=== PATIENT | female | born 1985 | race Caucasian/White ===

== ENCOUNTER → 2016-06-05 | Outpatient (CLI) | payer OTHER ==
[~2016-06-05] MED LIST: PRENTAB85 PO
== END ==
LOC: HPND 13:20
PROVIDERS: ATTEND Family Medicine
DX: Z36 Encounter for antenatal screening of mother (principal); O26.841 Uterine size-date discrepancy, first trimester; Z3A.12 12 weeks gestation of pregnancy
CPT/HCPCS: 76801; 76817

== ENCOUNTER → 2016-07-31 | Outpatient (CLI) | payer OTHER | LOC: HPND 14:15 | PROVIDERS: ATTEND Family Medicine | DX: O99.211 Obesity complicating pregnancy, first trimester (principal); E66.01 Morbid (severe) obesity due to excess calories; Z68.41 Body mass index [BMI] 40.0-44.9, adult | CPT/HCPCS: 76811 ==

== ENCOUNTER → 2016-09-05 | Outpatient (CLI) | payer OTHER ==
[~2016-09-05] MED LIST changes: +MACR100C2 PO
== END ==
LOC: HPND 13:59
PROVIDERS: ATTEND Obstetrics & Gynecology
DX: O99.211 Obesity complicating pregnancy, first trimester (principal); E66.01 Morbid (severe) obesity due to excess calories; Z68.41 Body mass index [BMI] 40.0-44.9, adult
CPT/HCPCS: 76816

== ENCOUNTER → 2016-10-10 | Outpatient (CLI) | payer OTHER ==
[~2016-10-10] MED LIST changes: +AMOX875T PO; +IBUP-232 PO; +ORTH0.35 PO; +RANI150T PO; +ZOFR4TAB PO
== END ==
LOC: HPND 12:36
PROVIDERS: ATTEND Family Medicine
DX: O99.212 Obesity complicating pregnancy, second trimester (principal); E66.01 Morbid (severe) obesity due to excess calories; Z68.41 Body mass index [BMI] 40.0-44.9, adult
CPT/HCPCS: 76816

== ENCOUNTER → 2016-11-07 | Outpatient (CLI) | payer OTHER | LOC: HPND 09:24 | PROVIDERS: ATTEND Family Medicine | DX: O99.213 Obesity complicating pregnancy, third trimester (principal); E66.01 Morbid (severe) obesity due to excess calories; Z68.41 Body mass index [BMI] 40.0-44.9, adult | CPT/HCPCS: 76816 ==

== ENCOUNTER → 2016-11-14 | Outpatient (CLI) | payer OTHER | LOC: HPND 12:46 | PROVIDERS: ATTEND Family Medicine | DX: O41.03X0 Oligohydramnios, third trimester, not applicable or unspecified (principal); Z03.71 Encounter for suspected problem with amniotic cavity and membrane ruled out; Z3A.35 35 weeks gestation of pregnancy | CPT/HCPCS: 76815 ==

== ENCOUNTER 2016-11-21 14:09 | Emergency (ER) | payer OTHER ==
[~2016-11-21] VITALS: Ht 162.6 cm; Wt 121.1 kg
[~2016-11-21 14:09] MED LIST changes: -AMOX875T PO; -IBUP-232 PO; -ORTH0.35 PO
--- NOTE | 2016-11-21 15:18 | PD ---
History of Present Illness Date Seen: Nov 21, 2016 History of Present Illness Patient Name: Meenu Valiente Unit Number: [id number] Date of : 1985 Patient Status: Registered Recurring Attending Doctor: Kristen Thapa MD HPI HPI Chief Complaint low KANU from [facility] Date Seen: Nov 21, 2016 Time Seen: 14:49 Travel History International Travel<30 Days: No Contact w/Intl Traveler<30Days: No History of Present Illness HPI 31 yo at 36/3 weeks presented to OB triage from [facility] because pt was found to have a low KANU of 6.3 at u/s appointment. Pt denies LOF, vaginal bleeding, or contractions. Endorses movement. Pt has a follow-up appointment with [facility] tomorrow to recheck KANU. Denies dysuria, fever or chills. No other concerns. Para: 1 : 4 Miscarriage: 2 History (Limited) History Past Medical History Medical History: Denies Significant Hx Obstetric History Obstetric History -2 miscarriage, 2005 and 2006 -1 , 2008 no complications -this complicated by low KANU Past Surgical History Narrative Surgical - Right ovary and R. fallopian tube removal due to R. ovarian cyst, 2006 -Left rotator cuff surgery x2 (2004 and 2006) -D&C x2 for miscarriages Family History Narrative Family History -cardiac disease- father Social History Alcohol Use: No Tobacco Use: No Substance Abuse: No Allergies-Medications Allergies-Medications (Allergen,Severity, Reaction): Coded Allergies: sulfamethoxazole (Verified Allergy, Severe, RASH, 11/15/16) trimethoprim (Verified Allergy, Severe, RASH, 11/15/16) Sulfa (Sulfonamide Antibiotics) (Verified Allergy, Intermediate, rash, ) Home Meds Active Scripts Ranitidine (Ranitidine) 150 Mg Tab, 150 MG PO BID for Heartburn Management, #60 TAB 1 Refill Prov:Carlos Pacheco MD R2 10/18/16 Vit W/ Ferrous Fumara (Pnv Plus Multivi 27-1 mg) 1 Tab Tab, 1 TAB PO DAILY, #90 BOTTLE 4 Refills Prov:Carlos Pacheco MD R2 05/09/16 Discontinued Scripts Ondansetron (Zofran) 4 Mg Tab, 4 MG PO Q6HR Y for NAUSEA OR VOMITING, #30 TAB 1 Refill Prov:Carlos Pacheco MD R2 10/18/16 Nitrofurantoin Monohydrate Macrocrystals (Macrobid) 100 Mg Cap, 100 MG PO BID for Infection, #14 CAP 0 Refills Prov:Mireya Calabrese MD R3 09/12/16 ROS Review of Systems Except as stated in HPI: all other systems reviewed are Neg Physical Exam Physical Exam Narrative GENERAL: Well-nourished, well-developed patient. SKIN: Warm and dry. HEAD: Normocephalic and atraumatic. EYES: No scleral icterus. No injection or drainage. ENT: No nasal drainage noted. Mucous membranes pink. Airway patent. NECK: Supple, trachea midline. No JVD. CARDIOVASCULAR: Regular rate and rhythm without murmurs, gallops, or rubs. RESPIRATORY: Breath sounds equal bilaterally. No accessory muscle use. ABDOMEN/GI: Abdomen soft, non-tender, bowel sounds present, no rebound, no guarding Gravid to 36/3 weeks size GENITOURINARY: Membranes: intact Uterine Contractions: none FHT's: Category: 1 Baseline: 130 Reactive: positive Variability:moderate Decels: none EXTREMITIES: No cyanosis or edema. BACK: Nontender without obvious deformity. No CVA tenderness. NEUROLOGICAL: Awake and alert. Motor and sensory grossly within normal limits. Five out of 5 muscle strength in all muscle groups. Normal speech. Data Data Data Vital Signs Reviewed: Yes Orders Orders Us Ob Bpp (11/21/16 ) Vital Signs (Adult) .ON ADMISSION (11/21/16 14:45) ^ Labor Status (11/21/16 14:45) ^ Non Stress Test (11/21/16 14:45) ^ Hydration (11/21/16 14:45) Pamg-1 Test .ONCE (11/21/16 14:45) Lr (Bolus) Inj (11/21/16 15:00) Urinalysis - C+S If Indicated (11/21/16 14:47) [facility] Medical Record Reviewed: Yes Plan 31 yo at 36/3 weeks presented to OB triage from [facility] because pt was found to have a low KANU of 6.3. 1. IUP at 36/3 weeks gestation, complicated by low KANU -Continue routine OB care -encourage oral hydration -1 LR bolus -amnisure test found to be negative -urine dipstick done, positive for leuk. urine sample sent for UA, pending results - Pt has f/u appointment with [facility] tomorrow - Anticipate discharge today, pending clinical course update: 2. asymptomatic bacteruria in UA positive for leukocytes, urine WBC (82) and trace ketone. Urine Cx and sensitivities pending. Pt asymptomatic. -Pt has f/u care appt with PCP Dr. Pacheco next week . -Plan to f/u with pt regarding results of urine cx and sensitivities and prescribe appropriate antibiotics at that time. -Contact phone #: [phone] -[facility] Diagnosis Diagnosis: Primary Impression: 36 weeks gestation of Additional Impressions: KANU (amniotic fluid index) borderline low Asymptomatic bacteriuria during Disposition: DISCHARGE HOME Condition: Stable Rody Garcia MD R1 Nov 21, 2016 15:18
[2016-11-21] MEDS ORDERED: LACTATED RINGER'S 1000 ML INJ 1,000 ML IV ONE (15:30)
[2016-11-21 16:14] LABS: BACTERIA, URINE FEW /hpf; BLOOD, URINE NEG (NEG); COMMENT (UR) CULTURE INDICATED; CULTURE IF INDICATED CULTURE INDICATED; GLUCOSE,URINE NEG (NEG); KETONE, URINE TRACE mg/dL (NEG); NITRITE,URINE NEG (NEG); SQUAMOUS EPITHELIAL CELL URINE 7 /hpf (0-5); URINE COLOR YELLOW (YELLW/STRAW)
--- NOTE | 2016-11-21 17:15 | PD ---
HPI Travel History International Travel<30 Days: No Contact w/Intl Traveler<30Days: No Known Affected Area: No History of Present Illness HPI please see other ED note Allergies-Medications (Allergen,Severity, Reaction): Coded Allergies: sulfamethoxazole (Verified Allergy, Severe, RASH, 11/15/16) trimethoprim (Verified Allergy, Severe, RASH, 11/15/16) Sulfa (Sulfonamide Antibiotics) (Verified Allergy, Intermediate, rash, ) Home Meds Active Scripts Ranitidine (Ranitidine) 150 Mg Tab, 150 MG PO BID for Heartburn Management, #60 TAB 1 Refill Prov:Carlos Pacheco MD R2 10/18/16 Vit W/ Ferrous Fumara (Pnv Plus Multivi 27-1 mg) 1 Tab Tab, 1 TAB PO DAILY, #90 BOTTLE 4 Refills Prov:Carlos Pacheco MD R2 05/09/16 Discontinued Scripts Ondansetron (Zofran) 4 Mg Tab, 4 MG PO Q6HR Y for NAUSEA OR VOMITING, #30 TAB 1 Refill Prov:Carlos Pacheco MD R2 10/18/16 Nitrofurantoin Monohydrate Macrocrystals (Macrobid) 100 Mg Cap, 100 MG PO BID for Infection, #14 CAP 0 Refills Prov:Mireya Calabrese MD R3 09/12/16 Physical Exam Narrative GENERAL: Well-nourished, well-developed patient. SKIN: Warm and dry. HEAD: Normocephalic and atraumatic. EYES: No scleral icterus. No injection or drainage. ENT: No nasal drainage noted. Mucous membranes pink. Airway patent. NECK: Supple, trachea midline. No JVD. CARDIOVASCULAR: Regular rate and rhythm without murmurs, gallops, or rubs. RESPIRATORY: Breath sounds equal bilaterally. No accessory muscle use. BREASTS: Bilateral exam showed no masses , no retractions, no nipple discharge. ABDOMEN/GI: Abdomen soft, non-tender, bowel sounds present, no rebound, no guarding Gravid to [-] weeks size Fundal Height: [-] GENITOURINARY: External Genitalia: intact and normal in appearance BUS glands: [-] Cervix: [-] Dilatation: [-] Effacement: [-] Station: [-] Presentation: [-] Membranes: [intact or ruptured] Uterine Contractions: [-] FHT's: Category: [-] Baseline: [-] Reactive: [-] Variability: [-] Decels: [-] EXTREMITIES: No cyanosis or edema. BACK: Nontender without obvious deformity. No CVA tenderness. NEUROLOGICAL: Awake and alert. Motor and sensory grossly within normal limits. Five out of 5 muscle strength in all muscle groups. Normal speech. Data Data Orders Orders Vital Signs (Adult) .ON ADMISSION (11/21/16 15:16) ^ Labor Status (11/21/16 15:16) ^ Non Stress Test (11/21/16 15:16) Pamg-1 Test .ONCE (11/21/16 15:16) Lactated Ringer's 1000 Ml Inj (Lr 1000 M (11/21/16 15:30) Urinalysis - C+S If Indicated (11/21/16 15:20) Urine Culture (11/21/16 14:50) Attending Discharge Order (11/21/16 ) Labs Laboratory Tests Test 11/21/16 14:50 Urine Color YELLOW Urine Turbidity HAZY Urine pH 6.0 Urine Specific Napoleon 1.019 Urine Protein TRACE Urine Glucose (UA) NEG Urine Ketones TRACE Urine Occult Blood NEG Urine Nitrite NEG Urine Bilirubin NEG Urine Urobilinogen LESS THAN 2.0 Urine Leukocyte Esterase LARGE Urine RBC 1 Urine WBC 82 Urine Squamous Epithelial Cells 7 Urine Bacteria FEW Microscopic Urinalysis Comment CULTURE INDICATED Date/Time Source Procedure Growth Status 11/21/16 14:50 Urine Clean Catch Urine Culture Pending Received MDM Diagnosis Diagnosis: Primary Impression: 36 weeks gestation of Additional Impression: Asymptomatic bacteriuria during Disposition: 01 DISCHARGE HOME Condition: Stable Patient Instructions: General Instructions, Having Your Baby: The Labor Process (GEN) Rody Garcia MD R1 Nov 21, 2016 17:15
[2016-11-25] MEDS ORDERED: AMOX875T PO (09:53)
== END 2016-11-21 18:01 | disposition home or self-care (01) ==
LOC: HOBED 14:09
DX: O26.893 Other specified pregnancy related conditions, third trimester (principal); R82.71 Bacteriuria; B95.2 Enterococcus as the cause of diseases classified elsewhere; Z3A.36 36 weeks gestation of pregnancy
CPT/HCPCS: 81001; 84112; 87077; 87086; 87186; 99284

== ENCOUNTER → 2016-11-22 | Outpatient (CLI) | payer OTHER ==
[~2016-11-22] MED LIST changes: +AMOX875T PO; +IBUP-232 PO; -MACR100C2 PO; +ORTH0.35 PO; -ZOFR4TAB PO
== END ==
LOC: HPND 09:36
PROVIDERS: ATTEND Family Medicine
DX: O99.213 Obesity complicating pregnancy, third trimester (principal); E66.01 Morbid (severe) obesity due to excess calories; Z68.41 Body mass index [BMI] 40.0-44.9, adult
CPT/HCPCS: 76815

== ENCOUNTER 2016-12-05 13:11 | Inpatient (IN) | payer OTHER ==
[2016-12-05] VITALS (8 sets, daily range): BP systolic 120–135; BP diastolic 67–88; PULSE 79–90; RESP 16–18; TEMP 98–98.2
[~2016-12-05] VITALS: Ht 162.6 cm; Wt 122.0 kg
[~2016-12-05 13:11] MED LIST changes: -IBUP-232 PO; -ORTH0.35 PO
[2016-12-05] MEDS ORDERED: AMOX875T PO (14:00)
[2016-12-05] MEDS ORDERED: LACTATED RINGER'S 1000 ML INJ 1,000 ML IV PRN (14:16)
--- NOTE | 2016-12-05 14:21 | HHI.HP ---
HPI Chief Complaint oligohydramnios Date Seen: Dec 05, 2016 Time Seen: 14:26 Travel History International Travel<30 Days: No Contact w/Intl Traveler<30Days: No History of Present Illness HPI Ms. Valiente is a 31 y/o female at 38/3 weeks who presents from [facility] for oligohydramnios. Pt was receiving serial ultrasounds due to history of low amniotic fluid. Today, KANU was 4.4. Pt was seen in [place] a couple weeks ago for low KANU as well, was given IV fluids and then sent home after improvement. Was recommended for induction of labor today. Pt denies any complaints/concerns. Denies any vaginal bleeding, loss of fluids, contractions. Endorses movement. She sees Dr. Pacheco for care in [facility]. Weeks Gestation: 38 Para: 1 : 4 Miscarriage: 2 History Past Medical History Medical History: Denies Significant Hx Obstetric History Obstetric History in 2008 at 39 weeks 2 miscarriages Past Surgical History Narrative Surgical Right ovary & FT removed Family History Family History: Negative Social History Alcohol Use: No Tobacco Use: No Substance Abuse: No Allergies-Medications (Allergen,Severity, Reaction): Coded Allergies: Sulfa (Sulfonamide Antibiotics) (Verified Allergy, Severe, rash, 12/05/16) sulfamethoxazole (Verified Allergy, Severe, RASH, 12/05/16) trimethoprim (Verified Allergy, Severe, RASH, 12/05/16) Home Meds Active Scripts Vit W/ Ferrous Fumara (Pnv Plus Multivi 27-1 mg) 1 Tab Tab, 1 TAB PO DAILY, #90 BOTTLE 4 Refills Prov:Carlos Pacheco MD R2 05/09/16 Reported Medications Amoxicillin (Amoxicillin) 875 Mg Tab, 875 MG PO BID for Infection, TAB 0 Refills 12/05/16 Discontinued Scripts Amoxicillin (Amoxicillin) 875 Mg Tab, 875 MG PO BID for Infection for 7 Days, # 14 TAB 0 Refills Prov:Carlos Pacheco MD R2 11/25/16 Ranitidine (Ranitidine) 150 Mg Tab, 150 MG PO BID for Heartburn Management, #60 TAB 1 Refill Prov:Carlos Pacheco MD R2 10/18/16 Review of Systems General / Constitutional: No: Fever, Weight Loss, Chills, Other Eyes: No: Diploplia, Blurred Vision, Visual changes, Pain, Photophobia HENT: No: Headaches, Vertigo, Lightheadedness Cardiovascular: No: Irregular Rhythm, Chest Pain or Discomfort, Palpitations, Tachycardia, Syncope, Varicosities, Edema, Cyanosis Respiratory: No: Cough, Short of Breath, Other Gastrointestinal: No: Nausea, Vomiting, Diarrhea Genitourinary: No: Decreased Urinary Output, Oliguria Musculoskeletal: No: Limited ROM, Weakness, Cramping, Edema, Pain Skin: No Rash, No Itching, No Dryness, No Lumps, No Change in Pigmentation, No Change in Nails, No Alopecia, No Lesions Neurologic: No: Weakness, Dizziness, Syncope, Focal Abnormalities, Coordination Problem, Headache, Slurred Speech, Seizures Psychiatric: No: Depression, Suicidal Ideations, Homicidal Ideation Endocrine: No: Heat Intolerance, Cold Intolerance, Polydipsia, Polyuria, Other Physical Exam Narrative GENERAL: Well-nourished, well-developed patient. SKIN: Warm and dry. HEAD: Normocephalic and atraumatic. EYES: No scleral icterus. No injection or drainage. ENT: No nasal drainage noted. Mucous membranes pink. Airway patent. NECK: Supple, trachea midline. No JVD. CARDIOVASCULAR: Regular rate and rhythm without murmurs, gallops, or rubs. RESPIRATORY: Breath sounds equal bilaterally. No accessory muscle use. ABDOMEN/GI: Abdomen soft, non-tender, bowel sounds present, no rebound, no guarding Gravid to 39 weeks size GENITOURINARY: External Genitalia: intact and normal in appearance Cervix: stretchy Dilatation: 1-2 Effacement: 70 Station: -3 Presentation: vertex Membranes: intact Uterine Contractions: none FHT's: Category: 1 Baseline: 130 Reactive: yes Variability: moderate Decels: none EXTREMITIES: No cyanosis or edema. BACK: Nontender without obvious deformity. No CVA tenderness. NEUROLOGICAL: Awake and alert. Motor and sensory grossly within normal limits. Five out of 5 muscle strength in all muscle groups. Normal speech. Caprini VTE Risk Assessment Caprini VTE Risk Assessment: No/Low Risk (score <= 1) Caprini Risk Assessment Model Point Value = 1 Point Value = 2 Point Value = 3 Point Value = 5 Age 41-60 Minor surgery BMI > 25 kg/m2 Swollen legs Varicose veins or History of unexplained or recurrent spontaneous Oral contraceptives or hormone replacement Sepsis (< 1 month) Serious lung disease, including pneumonia (< 1 month) Abnormal pulmonary function Acute myocardial infarction Congestive heart failure (< 1 month) History of inflammatory bowel disease Medical patient at bed rest Age 61-74 Arthroscopic surgery Major open surgery (> 45 min) Laparoscopic surgery (> 45 min) Malignancy Confined to bed (> 72 hours) Immobilizing plaster cast Central venous access Age >= 75 History of VTE Family history of VTE Factor V Leiden Prothrombin [id number] Lupus anticoagulant Anticardiolipin antibodies Elevated serum homocysteine Heparin-induced thrombocytopenia Other congenital or acquired thrombophilia Stroke (< 1 month) Elective arthroplasty Hip, pelvis, or leg fracture Acute spinal cord injury (< 1 month) Prophylaxis Regimen Total Risk Factor Score Risk Level Prophylaxis Regimen 0-1 Low Early ambulation 2 Moderate Order ONE of the following: *Sequential Compression Device (SCD) *Heparin 5000 units SQ BID 3-4 Higher Order ONE of the following medications: *Heparin 5000 units SQ TID *Enoxaparin/Lovenox 40 mg SQ daily (WT < 150 kg, CrCl > 30 mL/min) *Enoxaparin/Lovenox 30 mg SQ daily (WT < 150 kg, CrCl > 10-29 mL/min) *Enoxaparin/Lovenox 30 mg SQ BID (WT < 150 kg, CrCl > 30 mL/min) AND/OR *Sequential Compression Device (SCD) 5 or more Highest Order ONE of the following medications: *Heparin 5000 units SQ TID (Preferred with Epidurals) *Enoxaparin/Lovenox 40 mg SQ daily (WT < 150 kg, CrCl > 30 mL/min) *Enoxaparin/Lovenox 30 mg SQ daily (WT < 150 kg, CrCl > 10-29 mL/min) *Enoxaparin/Lovenox 30 mg SQ BID (WT < 150 kg, CrCl > 30 mL/min) AND *Sequential Compression Device (SCD) Data Data Vital Signs Reviewed: Yes Orders Orders Influenza (Quad) Vaccine Inj (Flu (Quadr (12/06/16 10:00) Admit To Inpatient (12/05/16 ) Code Status (12/05/16 14:16) Vital Signs (Adult) .Per protocol (12/05/16 14:16) Activity Oob Ad Bell (12/05/16 14:16) Heart (12/05/16 14:16) Amnioinfusion (12/05/16 14:16) Urinary Catheter Management .ONCE (12/05/16 14:16) Diet Liquid (12/05/16 Dinner) Lactated Ringer's 1000 Ml Inj (Lr 1000 M (12/05/16 14:16) Lactated Ringer's 1000 Ml Inj (Lr 1000 M (12/05/16 14:16) Sodium Chlorid 0.9% 500 Ml Inj (Ns 500 M (12/05/16 14:30) Sodium Chlor 0.9% 1000 Ml Inj (Ns 1000 M (12/05/16 14:36) Lidocaine 1% Inj (50 Ml) (Xylocaine 1% I (12/05/16 14:30) Citric Acid-Sodium Citrate Liq (Bicitra (12/05/16 14:30) Ondansetron Inj (Zofran Inj) (12/05/16 14:30) Fentanyl Inj (Fentanyl Inj) (12/05/16 14:30) Fentanyl Inj (Fentanyl Inj) (12/05/16 14:30) Complete Blood Count With Diff (12/05/16 14:16) Hold Clot (12/05/16 14:16) Abo/Rh Blood Type (12/05/16 14:16) Urinalysis - C+S If Indicated (12/05/16 14:16) Resp Oxygen Non Rebreathe Mask (12/05/16 ) ^ Epidural / Intrathecal Infus (12/05/16 14:16) Oxytocin 30 Units-500ml Premix (Pitocin (12/05/16 14:30) Lidocaine 1% Inj (50 Ml) (Xylocaine 1% I (12/05/16 14:30) Light Mineral Oil (Muri-Lube Oil) (12/05/16 14:30) Inpatient Certification (12/05/16 ) Specimen To Be Collected PRN (12/05/16 14:16) ^ Labor Induction (12/05/16 14:16) ^ Vaginal Insert (12/05/16 14:16) ^ Vaginal Lavage (12/05/16 14:16) Heart (12/05/16 14:16) Sodium Chloride 0.9% Flush (Ns Flush) (12/05/16 21:00) Sodium Chloride 0.9% Flush (Ns Flush) (12/05/16 14:30) Dinoprostone Vag Insert (Cervidil Vag In (12/05/16 14:30) Group B Strep: Negative Assessment/Plan Problem List: (1) Oligohydramnios ICD Codes: O41.00X0 - Oligohydramnios, unspecified trimester, not applicable or unspecified Qualifiers: Qualified Codes: O41.03X0 - Oligohydramnios, third trimester, not applicable or unspecified (2) ICD Codes: Z34.90 - Encounter for supervision of normal , unspecified , unspecified trimester Qualifiers: Qualified Codes: Z3A.38 - 38 weeks gestation of Assessment and Plan 31 y/o at 38/3 weeks sent from [facility] for oligohydramnios with KANU of 4.4 Pt has had recurrent KANU over course of GBS negative Cervical exam: -/-3 -Admit to L&D -Cervidil for cervical ripening -Continuous FHT -Routine labor care -Pitocin in AM if favorable cervix -Anticipate vaginal delivery Glenn Archibald MD, R2 Dec 05, 2016 14:21
[2016-12-05] MEDS ORDERED: OXYTOCIN 30 UNITS-500ML PREMIX 500 ML IV ONE (14:30)
[2016-12-05] MEDS ORDERED: LIDOCAINE HCL 1% 50 ML VIAL INFIL PRN (14:30)
[2016-12-05] MEDS ORDERED: ONDANSETRON HCL 4 MG/2 ML VIAL IV PUSH PRN (14:30)
[2016-12-05] MEDS ORDERED: SODIUM CHLORID 0.9% 500 ML INJ 500 ML IV PRN (14:30)
[2016-12-05] MEDS ORDERED: MINERAL OIL 10 ML VIAL TOPICAL PRN (14:30)
[2016-12-05] MEDS ORDERED: SODIUM CHLORIDE 0.9% FLUSH 10 ML FLUSH IV FLUSH PRN (14:30)
[2016-12-05] MEDS ORDERED: CITRIC ACID-SODIUM CITRATE LIQ 30 ML UDC PO SCH (14:30)
[2016-12-05] MEDS ORDERED: DINOPROSTONE 10 MG VAG INSERT VAGINAL ONE (14:30)
[2016-12-05] MEDS ORDERED: LIDOCAINE HCL 1% 50 ML VIAL I-DERMAL PRN (14:30)
[2016-12-05] MEDS ORDERED: SODIUM CHLOR 0.9% 1000 ML INJ 1,000 ML IV PRN (14:36)
[2016-12-05 15:06] LABS: BACTERIA, URINE RARE /hpf; BLOOD, URINE NEG (NEG); COMMENT (UR) CULTURE INDICATED; CULTURE IF INDICATED CULTURE INDICATED; GLUCOSE,URINE NEG (NEG); KETONE, URINE NEG (NEG); MUCUS URINE FEW /lpf (OCC); NITRITE,URINE NEG (NEG); SQUAMOUS EPITHELIAL CELL URINE 7 /hpf (0-5); URINE COLOR YELLOW (YELLW/STRAW)
[2016-12-05 15:17] LABS: AUTOMATED NEUTROPHIL # 7.6 TH/MM3 (1.8-7.7); BASOPHIL % 0.4 % (0.0-2.0); EOSINOPHIL # 0.2 TH/MM3 (0-0.4); HEMATOCRIT 36.7 % (35.0-46.0); HEMO FLAGS DIFF FINAL; LYMPH % 17.5 % (9.0-44.0); LYMPHOCYTE # 1.8 TH/MM3 (1.0-4.8); MEAN CELL VOLUME 86.5 FL (80.0-100.0); MEAN CORPUSCULAR HEMOGLOBIN 28.9 PG (27.0-34.0); MEAN CORPUSCULAR HGB CONC 33.4 % (32.0-36.0); MONO % 6.4 % (0.0-8.0); NEUT % 73.7 % (16.0-70.0); PLATELET COUNT 262 TH/MM3 (150-450); RED BLOOD COUNT 4.24 MIL/MM3 (4.00-5.30); RED CELL DISTRIBUTION WIDTH 13.9 % (11.6-17.2); WHITE BLOOD COUNT 10.3 TH/MM3 (4.0-11.0)
[2016-12-05] MEDS: LACTATED RINGER'S 1000 ML INJ 1,000 ML IV SCH ×2 (16:00→23:08)
[2016-12-05] MEDS ORDERED: SODIUM CHLORIDE 0.9% FLUSH 10 ML FLUSH IV FLUSH SCH (21:00)
[2016-12-05] MEDS ORDERED: ZOLPIDEM TARTRATE 10 MG TAB PO ONE (23:15)
[2016-12-06] VITALS (18 sets, daily range): BP systolic 75–144; BP diastolic 59–94; PULSE 67–98; RESP 14–20; TEMP 98–98.5
[2016-12-06] MEDS: LACTATED RINGER'S 1000 ML INJ 1,000 ML IV SCH ×2 (07:00→12:18)
[2016-12-06] MEDS ORDERED: OXYTOCIN 30 UNITS-500ML PREMIX 500 ML IV SCH ×2 (09:00→15:30)
--- NOTE | 2016-12-06 09:17 | PD.LABORPN ---
Subjective Subjective Patient resting comfortably in bed. No complaints at this time. Pt did well overnight. Endorses movement. Feeling occasional contraction. No loss of fluids or vaginal bleeding. Objective Vital Signs Vital Signs Date Time Temp Pulse Resp B/P (MAP) Pulse Ox O2 Delivery O2 Flow Rate FiO2 12/06/16 07:22 82 128/77 (94) 12/06/16 07:22 98.5 20 12/06/16 05:29 98.4 12/06/16 05:28 78 129/94 (106) 12/06/16 04:51 18 12/06/16 02:00 88 14 120/77 (91) 12/06/16 02:00 98.0 Objective Pelvic Exam: Cervix: posterior Dilatation: 4 Effacement: 70 Station: -2 Presentation: vertex Membranes: AROM Uterine Contractions: occasional FHT's: Category: 1 Baseline: 1 Reactive: 125 Variability: moderate Decels: none Weeks Gestation: 38 Gest Age Assessed Date: Dec 06, 2016 Gest Age Assessed Time: 09:15 Pt started active labor?: No Medical induction of labor?: Yes Medical induction start date: Dec 05, 2016 Medical induction start time: 16:00 Artificial rupture of membrane: Yes Artificial ROM date: Dec 06, 2016 Artifical ROM time: 09:15 Assessment/Plan Problem List: (1) Oligohydramnios ICD Codes: O41.00X0 - Oligohydramnios, unspecified trimester, not applicable or unspecified Qualifiers: Qualified Codes: O41.03X0 - Oligohydramnios, third trimester, not applicable or unspecified (2) ICD Codes: Z34.90 - Encounter for supervision of normal , unspecified , unspecified trimester Qualifiers: Qualified Codes: Z3A.38 - 38 weeks gestation of Assessment and Plan 31 y/o at 38/4 weeks admitted for induction of labor for oligohydramnios Cervidil overnight, cervical change from 1-->4 Exam this mornin/70/-2 -AROM performed with no fluid return -Pitocin started for labor augmentation -IUPC and scalp electrode placed -Continuous FHT -Expectant management -Anticipate vaginal delivery sdw Glenn Collier MD, R2 Dec 06, 2016 09:17
[2016-12-06] MEDS ORDERED: INFLUENZA VIRUS VACCINE (QUADRIVALENT) 0.5 ML SYR IM ONE (10:00)
[2016-12-06] MEDS ORDERED: ePHEDrine/NS 25 MG/5 ML SYR ONE ×2 (10:03→10:11)
[2016-12-06] MEDS ORDERED: fentaNYL 2MCG-BUPIV 0.125% INJ 100 ML ONE (10:03)
[2016-12-06] MEDS ORDERED: BUPIVACAINE HCL PF 0.25% 10 ML VIAL ONE (10:10)
[2016-12-06] MEDS ORDERED: DO NOT ADMINISTER ANTICOAGULANTS PRN (12:15)
[2016-12-06] MEDS ORDERED: fentaNYL 2MCG-BUPIV 0.125% 100 ML EPIDURAL SCH (12:15)
[2016-12-06] MEDS ORDERED: NO SYSTEM NARCOTICS PRN (12:15)
[2016-12-06] MEDS ORDERED: ePHEDrine/NS 25 MG/5 ML SYR IV PUSH PRN (12:15)
[2016-12-06] MEDS ORDERED: BENZOCAINE 20% TOPICAL SPRAY 60 ML CAN TOPICAL PRN (15:30)
[2016-12-06] MEDS ORDERED: WITCH HAZEL 50%/GLYCERIN 12.5% 40 PAD JAR TOPICAL PRN (15:30)
[2016-12-06] MEDS ORDERED: ACETAMINOPHEN 325 MG TAB PO PRN (15:30)
[2016-12-06] MEDS ORDERED: ALUMINUM/MAGNESIUM/SIMETH 30 ML CUP PO PRN (15:30)
[2016-12-06] MEDS ORDERED: ONDANSETRON ODT 4 MG TAB PO PRN (15:30)
[2016-12-06] MEDS ORDERED: ZOLPIDEM TARTRATE 5 MG TAB PO PRN (15:30)
[2016-12-06] MEDS ORDERED: oxyCODONE/ACETAMINOPHEN 5 MG/325 MG TAB PO PRN (15:30)
[2016-12-06] MEDS ORDERED: SODIUM CHLORIDE 0.9% FLUSH 10 ML FLUSH IV FLUSH PRN (15:30)
[2016-12-06] MEDS ORDERED: DOCUSATE SODIUM 50 MG/SENNA 8.6 MG TAB PO PRN (15:30)
--- NOTE | 2016-12-06 15:30 | PD.OB.DELI ---
Weeks gestation: 38 Gest age assessed date: Dec 06, 2016 Gest age assessed time: 09:15 Pt started active labor?: No Medical induction of labor?: Yes Medical induction start date: Dec 05, 2016 Medical induction start time: 16:00 Artificial rupture of membrane: Yes Artificial ROM date: Dec 06, 2016 Artifical ROM time: 09:15 Anesthesia: Epidural Episiotomy: None Vaginal Delivery: Normal Presentation: Occiput anterior Nuchal Cord: None Delayed cord clamping (45 sec): Yes Infant: Male Delivery date: Dec 06, 2016 Delivery time: 15:00 One Minute : 9 Five Minute : 9 Weight: 7lb 2oz, 3225g Placenta: Spontaneous delivery, Intact, 3 vessel cord Laceration: No lacerations Estimated blood loss: 250ml Additional Information Patient presented for IOL for oligo. IOL overnight with Cervidil, then started Pitocin in the morning. Epidural placed. Patient progressed well and delivered head by maternal effort without complications. No nuchal cord. No lacerations. APGARs 9 and 9. Carlos Pacheco MD R2 Dec 06, 2016 15:30
[2016-12-06] MEDS ORDERED: MEASLES, MUMPS, RUBELLA VACCINE 0.5 ML VIAL SQ ONE (16:00)
[2016-12-06] MEDS ORDERED: DIPHTH/TETANUS/ACEL PERTUSSIS (BOOSTER) 0.5 ML VIAL/PFS IM ONE (16:00)
[2016-12-06] MEDS: IBUPROFEN 600 MG TAB PO PRN (16:44)
[2016-12-06] MEDS: oxyCODONE/ACETAMINOPHEN 5 MG/325 MG TAB PO PRN (20:51)
[2016-12-06] MEDS ORDERED: SODIUM CHLORIDE 0.9% FLUSH 10 ML FLUSH IV FLUSH SCH (21:00)
[2016-12-07] MEDS: oxyCODONE/ACETAMINOPHEN 5 MG/325 MG TAB PO PRN ×4 (03:35→22:27)
[2016-12-07] MEDS: IBUPROFEN 600 MG TAB PO PRN ×2 (03:36→18:16)
--- NOTE | 2016-12-07 08:34 | HHI.OB ---
Subjective Post Day: 1 Remarks Patient is a 31-year-old delivered at 38 weeks and 4 days. Patient is day 1 after after induction of labor for oligohydramnios. Patient reports some low back pain where they attempted an epidural multiple times. Patient's pain is well-controlled with medication. Patient reports eating and drinking without any nausea or vomiting. Patient reports minimal bleeding. Patient has passed gas but no bowel movements. Patient is walking without lower extremity pain or shortness of breath. Patient reports desire for contraception and breast-feeding. Objective Vitals/I&O Vital Signs Date Time Temp Pulse Resp B/P (MAP) Pulse Ox O2 Delivery O2 Flow Rate FiO2 12/06/16 19:00 86 16 119/81 (94) 12/06/16 19:00 98.3 12/06/16 16:14 20 12/06/16 16:00 93 20 128/81 (97) 12/06/16 15:52 98 96/76 (83) 12/06/16 15:46 96 75/59 (64) 12/06/16 15:31 67 20 86/64 (71) 12/06/16 15:30 20 12/06/16 15:16 97 104/80 (88) 12/06/16 15:02 88 130/80 (97) 12/06/16 14:46 82 129/71 (90) 12/06/16 14:31 96 133/76 (95) 12/06/16 14:16 80 119/62 (81) 12/06/16 09:02 78 144/91 (108) Objective Remarks GENERAL: Well-nourished, well-developed patient. CARDIOVASCULAR: Regular rate and rhythm without murmurs, gallops, or rubs. RESPIRATORY: Breath sounds equal bilaterally. No accessory muscle use. ABDOMEN/GI: Abdomen soft, non-tender. Fundus: Firm, non-tender at umbilicus. GENITOURINARY: Light to moderate bleeding. EXTREMITIES: No cyanosis or edema, non-tender, without signs of DVT. Medications and IVs Current Medications Medications (Trade) Dose Ordered Sig/Sunni Route Start Time Stop Time Status Last Admin Miscellaneous Information No systemic narcotics to be given except... UNSCH PRN .XX 12/06/16 12:15 12/07/16 12:14 Miscellaneous Information DO NOT ADMINISTER ANY ANTICOAGUL... UNSCH PRN .XX 12/06/16 12:15 12/07/16 12:14 Fentanyl/ Bupivacaine HCl 100 ml @ 12 mls/hr TITRATE EPIDURAL 12/06/16 12:15 (ePHEDrine/NS 25 MG/5 ML SYR) 10 mg UNSCH PRN IV PUSH 12/06/16 12:15 12/07/16 12:14 (NS Flush) 2 ml BID IV FLUSH 12/06/16 21:00 (NS Flush) 2 ml UNSCH PRN IV FLUSH 12/06/16 15:30 (Tylenol) 650 mg Q4H PRN PO 12/06/16 15:30 (Motrin) 600 mg Q6H PRN PO 12/06/16 15:30 12/07/16 03:36 (Percocet 5-325 Mg) 1 tab Q4H PRN PO 12/06/16 15:30 12/06/16 16:44 (Percocet 5-325 Mg) 2 tab Q4H PRN PO 12/06/16 15:30 12/07/16 08:18 (Americaine 20% Top Spr) 1 spray Q4H PRN TOPICAL 12/06/16 15:30 (Tucks Pads) 1 applic QID PRN TOPICAL 12/06/16 15:30 (Evelyn-Colace) 2 tab Q12H PRN PO 12/06/16 15:30 (Ambien) 5 mg HS PRN PO 12/06/16 15:30 (Mag-Al Plus Susp Liq) 15 ml Q8H PRN PO 12/06/16 15:30 (Zofran Odt) 4 mg Q6H PRN PO 12/06/16 15:30 Assessment/Plan Problem List: (1) Oligohydramnios ICD Codes: O41.00X0 - Oligohydramnios, unspecified trimester, not applicable or unspecified Qualifiers: Qualified Codes: O41.03X0 - Oligohydramnios, third trimester, not applicable or unspecified (2) ICD Codes: Z34.90 - Encounter for supervision of normal , unspecified , unspecified trimester Qualifiers: Qualified Codes: Z3A.38 - 38 weeks gestation of (3) (normal spontaneous vaginal delivery) ICD Codes: O80 - Encounter for full-term uncomplicated delivery Assessment and Plan Patient is a 31-year-old delivered at 38 weeks and 4 days. Patient is day 1 after after induction of labor for oligohydramnios. Patient was counseled to do 6 weeks of pelvic rest. Patient was counseled to follow up in 6 weeks. Patient requested follow-up and contraception. --AF VSS --Continue routine care --Motrin and Percocet when necessary for pain --Encourage OOB --Pelvic rest for 6 weeks will need follow-up appointment at that time. --Contraception: OCPs, and then will consider IUD placement as an outpatient --Anticipate discharge tomorrow Discharge Planning Plan for discharge tomorrow Carlos Pacheco MD R2 Dec 07, 2016 08:34
[2016-12-07 20:30] VITALS: BP 122/87; PULSE 86; RESP 16; TEMP 98.8
[2016-12-08] MEDS: IBUPROFEN 600 MG TAB PO PRN (02:20)
[2016-12-08] MEDS: oxyCODONE/ACETAMINOPHEN 5 MG/325 MG TAB PO PRN (06:02)
[2016-12-08] MEDS ORDERED: ORTH0.35 PO (07:37)
[2016-12-08] MEDS ORDERED: IBUP-232 PO (07:37)
--- NOTE | 2016-12-08 08:17 | HHI.DCPOC ---
Discharge Care Plan Diagnosis: (1) (2) Oligohydramnios (3) (normal spontaneous vaginal delivery) Report Symptoms to Your Doctor -Temperature above 100.5 degrees -Redness, of incision or excessive or foul smelling drainage -Unusual pain or calf pain -Increased vaginal bleeding -Painful or difficulty urinating -Feelings of extreme sadness or anxiety after 2 weeks Goals to Promote Your Health * To prevent worsening of your condition and complications, please take medications as prescribed. * To maintain your health at the optimal level, please follow-up as instructed. Directions to Meet Your Goals Take your medications as prescribed Follow your dietary instruction Follow activity as directed Ensure plenty of rest for recovery Drink fluids for hydration Keep your appointments as scheduled Take your immunizations and boosters as scheduled If your symptoms worsen call your PCP, if no PCP go to Urgent Care Center or Emergency Room Smoking is Dangerous to Your Health. Avoid second hand smoke Call the 24-hour crisis hotline for domestic abuse at Carlos Pacheco MD R2 Dec 08, 2016 07:38
--- NOTE | 2016-12-08 08:17 | HHI.OB ---
Subjective Post Day: 2 Remarks Patient is a 31-year-old delivered at 38 weeks and 4 days. Patient is day 2 after after induction of labor for oligohydramnios. Patient reports some low back pain where they attempted an epidural multiple times. Patient's pain is well-controlled with medication. Patient reports eating and drinking without any nausea or vomiting. Patient reports minimal bleeding. Patient has passed gas and bowel movements. Patient is walking without lower extremity pain or shortness of breath. Patient reports desire for contraception and breast-feeding. (Carlos Pacheco MD R2) Remarks Patient seen and evaluated with resident under direct supervision, agree with assessment and plan. (Emre Zhao MD) Objective Vitals/I&O Vital Signs Date Time Temp Pulse Resp B/P (MAP) Pulse Ox O2 Delivery O2 Flow Rate FiO2 12/07/16 20:30 86 16 122/87 (99) 12/07/16 20:30 98.8 Objective Remarks GENERAL: Well-nourished, well-developed patient. CARDIOVASCULAR: Regular rate and rhythm without murmurs, gallops, or rubs. RESPIRATORY: Breath sounds equal bilaterally. No accessory muscle use. ABDOMEN/GI: Abdomen soft, non-tender. Fundus: Firm, non-tender at umbilicus. GENITOURINARY: Light to moderate bleeding. EXTREMITIES: No cyanosis or edema, non-tender, without signs of DVT. Medications and IVs Current Medications Medications (Trade) Dose Ordered Sig/Sunni Route Start Time Stop Time Status Last Admin Fentanyl/ Bupivacaine HCl 100 ml @ 12 mls/hr TITRATE EPIDURAL 12/06/16 12:15 (NS Flush) 2 ml BID IV FLUSH 12/06/16 21:00 (NS Flush) 2 ml UNSCH PRN IV FLUSH 12/06/16 15:30 (Tylenol) 650 mg Q4H PRN PO 12/06/16 15:30 (Motrin) 600 mg Q6H PRN PO 12/06/16 15:30 12/08/16 02:20 (Percocet 5-325 Mg) 1 tab Q4H PRN PO 12/06/16 15:30 12/06/16 16:44 (Percocet 5-325 Mg) 2 tab Q4H PRN PO 12/06/16 15:30 12/08/16 06:02 (Americaine 20% Top Spr) 1 spray Q4H PRN TOPICAL 12/06/16 15:30 (Tucks Pads) 1 applic QID PRN TOPICAL 12/06/16 15:30 (Evelyn-Colace) 2 tab Q12H PRN PO 12/06/16 15:30 (Ambien) 5 mg HS PRN PO 12/06/16 15:30 (Mag-Al Plus Susp Liq) 15 ml Q8H PRN PO 12/06/16 15:30 (Zofran Odt) 4 mg Q6H PRN PO 12/06/16 15:30 (Trimox) 875 mg BID PO 12/08/16 09:00 (Stuartnatal Plus 3 ) 1 tab DAILY PO 12/08/16 09:00 (Carlos Pacheco MD R2) Assessment/Plan Problem List: (1) Oligohydramnios ICD Codes: O41.00X0 - Oligohydramnios, unspecified trimester, not applicable or unspecified Qualifiers: Qualified Codes: O41.03X0 - Oligohydramnios, third trimester, not applicable or unspecified (2) ICD Codes: Z34.90 - Encounter for supervision of normal , unspecified , unspecified trimester Qualifiers: Qualified Codes: Z3A.38 - 38 weeks gestation of (3) (normal spontaneous vaginal delivery) ICD Codes: O80 - Encounter for full-term uncomplicated delivery Assessment and Plan Patient is a 31-year-old delivered at 38 weeks and 4 days. Patient is day 2 after after induction of labor for oligohydramnios. Patient was counseled to do 6 weeks of pelvic rest. Patient was counseled to follow up in 6 weeks. Patient requested follow-up and contraception. --AF VSS --Continue routine care --Motrin and Percocet when necessary for pain --Encourage OOB --Pelvic rest for 6 weeks will need follow-up appointment at that time. --Contraception: OCPs, and then will consider IUD placement as an outpatient --Anticipate discharge today --Follow-up in 6 weeks Discharge Planning Plan for discharge today (Carlos Pacheco MD R2) Carlos Pacheco MD R2 Dec 08, 2016 07:32 Emre Zhao MD Dec 08, 2016 09:30
[2016-12-08] MEDS ORDERED: AMOXICILLIN 875 MG TAB PO SCH (09:00)
[2016-12-08] MEDS ORDERED: MULTIVIT/MIN/PREN/FOL AC/IRON PRENATAL TAB PO SCH (09:00)
[2016-12-08 11:19] LABS: BACTERIA, URINE OCC /hpf; BLOOD, URINE LARGE (NEG); CALCIUM OXALATE CRYSTALS,URINE OCC /hpf; COMMENT (UR) CULTURE INDICATED; CULTURE IF INDICATED CULTURE INDICATED; GLUCOSE,URINE NEG (NEG); KETONE, URINE NEG (NEG); MUCUS URINE FEW /lpf (OCC); NITRITE,URINE NEG (NEG); SQUAMOUS EPITHELIAL CELL URINE 13 /hpf (0-5); URINE COLOR LIGHT-RED (YELLW/STRAW)
== END 2016-12-08 10:18 | disposition home or self-care (01) | DRG 775 ==
LOC: H2EA 13:11 → H1EA 12-06 17:35
PROVIDERS: ADMIT Obstetrics & Gynecology Maternal & Fetal Medicine; ATTEND Obstetrics & Gynecology Maternal & Fetal Medicine
PROC: 3E0P7VZ Introduction of Hormone into Female Reproductive, Via Natural or Artificial Opening (ICD-10-PCS; 2016-12-05)
PROC: 10E0XZZ Delivery of Products of Conception, External Approach (ICD-10-PCS; principal; 2016-12-06)
PROC: 10907ZC Drainage of Amniotic Fluid, Therapeutic from Products of Conception, Via Natural or Artificial Opening (ICD-10-PCS; 2016-12-06)
DX: O41.03X0 Oligohydramnios, third trimester, not applicable or unspecified (principal); Z23 Encounter for immunization; Z88.2 Allergy status to sulfonamides; Z3A.38 38 weeks gestation of pregnancy; Z37.0 Single live birth
CPT/HCPCS: 59025; 76816; 76818; 81001; 85025; 86900; 86901; 87077; 87086; 87186; 90686; J2590; J7120; Q2038

== ENCOUNTER → 2017-06-11 | Outpatient (CLI) | payer OTHER ==
[~2017-06-11] MED LIST changes: -AMOX875T PO; +IBUP-232 PO; +ORTH0.35 PO; -RANI150T PO
== END ==
LOC: HPND 10:03
PROVIDERS: ATTEND Family Medicine
DX: Z36.82 Encounter for antenatal screening for nuchal translucency (principal)
CPT/HCPCS: 36415; 76813; 76817

== ENCOUNTER → 2017-07-21 | Outpatient (CLI) | payer OTHER | LOC: HPND 07:53 | PROVIDERS: ATTEND Family Medicine | DX: O99.212 Obesity complicating pregnancy, second trimester (principal); E66.01 Morbid (severe) obesity due to excess calories; Z68.41 Body mass index [BMI] 40.0-44.9, adult; Z36.3 Encounter for antenatal screening for malformations | CPT/HCPCS: 76811 ==

== ENCOUNTER → 2017-08-19 | Outpatient (CLI) | payer OTHER | LOC: HPND 08:28 | PROVIDERS: ATTEND Family Medicine | DX: O99.212 Obesity complicating pregnancy, second trimester (principal); E66.01 Morbid (severe) obesity due to excess calories; Z68.41 Body mass index [BMI] 40.0-44.9, adult | CPT/HCPCS: 76816 ==

== ENCOUNTER 2017-12-01 14:13 | Inpatient (IN) ==
[2017-12-01] MEDS ORDERED: fentaNYL Citrate Inj 100 MCG/2 ML Ampul IV.PUSH PRN (14:55)
[2017-12-01] MEDS ORDERED: Naloxone Inj 0.4 MG/ML Vial IV.PUSH PRN (14:55)
[2017-12-01] MEDS ORDERED: Sodium Chlor 0.9% Inj 500 ML IV.SIG PRN (14:55)
[2017-12-01] MEDS ORDERED: Sod Chloride 0.9% Inj 1,000 ML IV.CONT PRN (14:55)
[2017-12-01] MEDS ORDERED: Citric Acid/Sodium Citrate Liq 30 ML UDC PO SCH (15:00)
--- NOTE | 2017-12-01 15:00 | P.HPOB ---
History of Present Illness Primary Care Physician: No Primary Care Physician Dr. Pacheco PCP at [facility] History of Present Illness: at 38wk1 is sent in from OB US for oligohydramnios. Denies any Cxns, LOF , VB. 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 This includes certification that hospital inpatient services are reasonable and necessary and in the case of services not specified as inpatient-only under 42 CFR 419.22(n), that they are appropriately provided as inpatient services in accordance to with the 2-midnight benchmark under 43 CFR 412.3(e) Estimated Total Length of Stay (Days): 2 Plans for Post Hospital Care: Home Review of Systems All other systems reviewed negative except as stated in HPI Medications and Allergies Allergies Allergy/AdvReac Type Severity Reaction Status Date / Time Sulfa (Sulfonamide Allergy Severe rash Verified 12/05/16 13:58 Antibiotics) sulfamethoxazole Allergy Severe RASH Verified 12/05/16 11:19 trimethoprim Allergy Severe RASH Verified 12/05/16 11:19 Home Medications Medication Instructions Recorded Confirmed Type prenat.vits,rosemary,[id number] 1 tab PO BID 12/01/17 12/01/17 History [ Vitamin] ranitidine HCl 150 mg PO DAILY 12/01/17 12/01/17 History Active Medications: Active Medications Citric Acid/Sodium Citrate (Sodium Citrate/Citric Acid Liq) 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 [place] Stop: 12/05/17 14:59 Exam Narrative: FH: 39 FHR: baseline 150, category 1, no decels SVE: closed/thick/floating - Additional findings Additional findings: Attending note patient seen and examined with PGY 3 Results - Labs CBC & Chem 7: 12/01/17 15:35 Caprini VTE Risk Assessment Caprini VTE Risk Assessment: No/Low Risk (score <= 1) Caprini Risk Assessment Model: Point Value = 1 Point Value = 2 Point Value = 3 Point Value = 5 Age 41-60 Minor surgery BMI > 25 kg/m2 Swollen legs Varicose veins or History of unexplained or recurrent spontaneous Oral contraceptives or hormone replacement Sepsis (< 1 month) Serious lung disease, including pneumonia (< 1 month) Abnormal pulmonary function Acute myocardial infarction Congestive heart failure (< 1 month) History of inflammatory bowel disease Medical patient at bed rest Age 61-74 Arthroscopic surgery Major open surgery (> 45 min) Laparoscopic surgery (> 45 min) Malignancy Confined to bed (> 72 hours) Immobilizing plaster cast Central venous access Age >= 75 History of VTE Family history of VTE Factor V Leiden Prothrombin [id number] Lupus anticoagulant Anticardiolipin antibodies Elevated serum homocysteine Heparin-induced thrombocytopenia Other congenital or acquired thrombophilia Stroke (< 1 month) Elective arthroplasty Hip, pelvis, or leg fracture Acute spinal cord injury (< 1 month) Prophylaxis Regimen: Total Risk Factor Score Risk Level Prophylaxis Regimen 0-1 Low Early ambulation 2 Moderate Order ONE of the following: *Sequential Compression Device (SCD) *Heparin 5000 units SQ BID 3-4 Higher Order ONE of the following medications: *Heparin 5000 units SQ TID *Enoxaparin/Lovenox 40 mg SQ daily (WT < 150 kg, CrCl > 30 mL/min) *Enoxaparin/Lovenox 30 mg SQ daily (WT < 150 kg, CrCl > 10-29 mL/min) *Enoxaparin/Lovenox 30 mg SQ BID (WT < 150 kg, CrCl > 30 mL/min) AND/OR *Sequential Compression Device (SCD) 5 or more Highest Order ONE of the following medications: *Heparin 5000 units SQ TID (Preferred with Epidurals) *Enoxaparin/Lovenox 40 mg SQ daily (WT < 150 kg, CrCl > 30 mL/min) *Enoxaparin/Lovenox 30 mg SQ daily (WT < 150 kg, CrCl > 10-29 mL/min) *Enoxaparin/Lovenox 30 mg SQ BID (WT < 150 kg, CrCl > 30 mL/min) AND *Sequential Compression Device (SCD) Assessment and Plan - Diagnosis (1) 38 weeks gestation of Code(s): Z3A.38 - 38 weeks gestation of Status: Acute Plan: at 38wks1 day, sent from OB US for oligohydramnios. - admit to L&D - category 1 tracing, cont to monitor - plan for cervidil induction - OB Hospitalist aware (2) Oligohydramnios antepartum Code(s): O41.00X0 - Oligohydramnios, unspecified trimester, not applicable or unspecified Status: Acute
[2017-12-01] MEDS ORDERED: Oxytocin 30 Units/500ml Premix 30 UNITS/500 ML BAG IV.SIG ONE (15:30)
[2017-12-01 16:29] LABS: Baso % (Auto) 0.4 % (0.0-2.0); Eos # (Auto) 0.2 th/mm3 (0.0-0.4); Eos % (Auto) 2.1 % (0.0-4.0); Hematocrit 32.5 % (35.0-46.0); Hemoglobin 11.4 gm/dL (11.6-15.3); Lymph # (Auto) 1.8 th/mm3 (1.0-4.8); Lymph % (Auto) 18.4 % (9.0-44.0); Mean Corpuscular HGB Conc 35.2 % (32.0-36.0); Mean Corpuscular Volume 82.6 fL (80.0-100.0); Mean Platelet Volume 10.3 fL (7.0-11.0); Mono # (Auto) 0.7 th/mm3 (0.0-0.9); Mono % (Auto) 6.9 % (0.0-8.0); Neut # (Auto) 6.9 th/mm3 (1.8-7.7); Neut % (Auto) 72.2 % (16.0-70.0); Platelet Count 240 th/mm3 (150-450); Red Blood Count 3.93 mil/mm3 (4.00-5.30); Red Cell Distribution Width 13.9 % (11.6-17.2); White Blood Count 9.6 th/mm3 (4.0-11.0)
[2017-12-01 16:38] LABS: Amphetamine Urine With Conf Neg (Neg); Benzodiazepine Urine With Conf Neg (Neg)
[2017-12-01 16:42] LABS: Bacteria,Urine Occasional /hpf; Bilirubin,Urine Negative (Negative); Color,Urine Yellow (Yellw/Straw); Glucose,Urine (UA) Negative (Negative); Hyaline Casts,Urine 2 /lpf (0-3); Leukocyte Esterase,Urine Moderate (Negative); Mucus,Urine Many /lpf (Occasional); Nitrite,Urine Negative (Negative); Specific Gravity,Urine 1.025 (1.002-1.035); Squamous Epithelial Cell,Urine 23 /hpf (0-5)
[2017-12-01 16:44] LABS: Clarity,Urine Hazy (Clear)
[2017-12-01] MEDS: Famotidine 20 MG Tablet PO SCH (20:58)
--- NOTE | 2017-12-01 21:27 | P.OBLABOR ---
Subjective Interval history: Patient is a 32-year-old at 38 weeks and 1 day admitted for induction of labor in the setting of oligohydramnios. Patient currently doing well lying comfortably in her bed. Labor progress check at 21:10. No questions or concerns at this time. Objective Vital Signs: Vital Signs - 8 hr 12/01/17 19:43 12/01/17 19:44 Temperature 97.9 F Pulse Rate 102 H Respiratory Rate 18 Blood Pressure 117/82 Objective: Pelvic Exam: Cervix: Posterior Dilatation: 1 cm Effacement: 10% Station: -3 Presentation: Vertex Membranes: Intact Uterine Contractions: No FHT's: Category: 1 Baseline: 140 Reactive: Yes Variability: Moderate Decels: None Assessment and Plan - Diagnosis (1) 38 weeks gestation of Code(s): Z3A.38 - 38 weeks gestation of Status: Acute Plan: Patient is a 32-year-old at 38 weeks and 1 day admitted for induction of labor for oligohydramnios. Patient had previous Cervidil in place before allowing patient went to the restroom. 10 mg of Cervidil be reinserted at this time. -Continue routine care -Cervical check in 1-2 hours Case discussed with Dr. Kevin and Dr. Kimball.
--- NOTE | 2017-12-02 05:08 | P.OBLABOR ---
Subjective Interval history: pt seen -Cervidil #2 repositioned deeper into posterior fornix- Exam FT - external os/ otherwise closed / long /-4. D/W pt plan may ambulate/shower/ eat breakfast/ FHR Category 1 Objective Vital Signs: Vital Signs - 8 hr 12/02/17 00:23 12/02/17 04:12 Temperature 98.1 F 97.8 F Pulse Rate 81 81 Respiratory Rate 17 16 Blood Pressure 139/92 H 148/93 H Objective: Pelvic Exam: Cervix: [-] Dilatation: [-] Effacement: [-] Station: [-] Presentation: [-] Membranes: [intact or ruptured] Uterine Contractions: [-] FHT's: Category: [-] Baseline: [-] Reactive: [-] Variability: [-] Decels: [-] Assessment and Plan - Diagnosis (1) 38 weeks gestation of Code(s): Z3A.38 - 38 weeks gestation of Status: Acute Plan: at 38wks1 day, sent from OB US for oligohydramnios. - admit to L&D - category 1 tracing, cont to monitor - plan for cervidil induction - OB Hospitalist aware (2) Oligohydramnios antepartum Code(s): O41.00X0 - Oligohydramnios, unspecified trimester, not applicable or unspecified Status: Acute
[2017-12-02] MEDS: fentaNYL Citrate Inj 100 MCG/2 ML Ampul IV.PUSH PRN ×2 (07:45→09:30)
[2017-12-02] MEDS: Famotidine 20 MG Tablet PO SCH ×2 (09:31→19:59)
[2017-12-02] MEDS ORDERED: fentaNYL 2MCG-Bupiv 0.125% Epi 150 ML EPIDURAL ONE (09:39)
[2017-12-02] MEDS ORDERED: Lidocaaine 1.5%/Epinephrine 1:200,000 PF Inj 5 ML Amp ONE (10:19)
[2017-12-02] MEDS ORDERED: Lidocaine PF 1% Inj 10 ML Amp ONE (10:19)
[2017-12-02] MEDS ORDERED: Oxytocin 30 Units/500ml Premix 30 UNITS/500 ML BAG ONE ×2 (10:57)
--- NOTE | 2017-12-02 11:12 | P.OBLABOR ---
Subjective Interval history: Patient s/p Cervidil x2 is winter and dilating quickly. She has epidural in place and is c/o nausea and "not feeling right" likely 2/2 low bp of 90s/40s despite 50mg of ephedrine. Will try to get bp up. Performed AROM. Thin bag was in tact over head. Performed AROM without any noticeable fluid. Objective Vital Signs: Vital Signs - 8 hr 12/02/17 04:12 12/02/17 07:39 12/02/17 09:28 Temperature 97.8 F 98.0 F Pulse Rate 81 91 H 81 Respiratory Rate 16 18 18 Blood Pressure 148/93 H 120/60 136/79 12/02/17 09:31 12/02/17 10:25 12/02/17 10:50 Temperature Pulse Rate 94 H 97 H Respiratory Rate 10 L 18 Blood Pressure 85/44 L 94/55 L Objective: Pelvic Exam: Cervix: [mid-position] Dilatation: [9 cm] Effacement: [100%] Station: [-2] Presentation: [vertex] Membranes: [AROM] Uterine Contractions: [regular q2-3 min] FHT's: Category: [I] Baseline: [130 bpm] Reactive: [+reactive] Variability: [moderate] Decels: [there are some deep variable decel's] Assessment and Plan - Diagnosis (1) 38 weeks gestation of Code(s): Z3A.38 - 38 weeks gestation of Status: Acute Plan: Patient is a 32-year-old at 38 weeks and 1 day admitted for induction of labor for oligohydramnios. Patient had previous Cervidil in place before allowing patient went to the restroom. 10 mg of Cervidil be reinserted at this time. -Continue routine care -Cervical check in 1-2 hours Case discussed with Dr. Kevin and Dr. Kimball. - Plan Patient is a 32yo at 38 weeks who p/w oligo, here for IOL, s/p Cervidil x2. Pt is winter and dilating quickly. She has epidural in place and is c/ o nausea and "not feeling right" likely 2/2 low bp of 90s/40s despite 50mg of ephedrine. Will try to get bp up. Performed AROM. Thin bag was in tact over head. Performed AROM without any noticeable fluid. -anticipate -will turn off epidural for low bp, will consider pressors
[2017-12-02] MEDS ORDERED: fentaNYL Citrate Inj 100 MCG/2 ML Ampul EPIDURAL ONE (11:15)
[2017-12-02] MEDS ORDERED: Zolpidem Tartrate 5 MG Tablet PO PRN (11:28)
[2017-12-02] MEDS ORDERED: Benzocaine 20% Top Spray 60 ML Can TOPICAL PRN (11:28)
[2017-12-02] MEDS ORDERED: Oxytocin 30 Units/500ml Premix 30 UNITS/500 ML BAG IV.CONT PRN (11:28)
[2017-12-02] MEDS ORDERED: Bisacodyl 10 MG Supp RECTAL PRN (11:28)
[2017-12-02] MEDS ORDERED: Acetaminophen 325 MG Tablet PO PRN (11:28)
[2017-12-02] MEDS ORDERED: Naloxone Inj 0.4 MG/ML Vial IV.PUSH PRN (11:28)
[2017-12-02] MEDS ORDERED: Witch Hazel 50%/Glyderin 12.5% 40 Pad Jar RECTAL PRN (11:28)
[2017-12-02] MEDS ORDERED: fentaNYL 2MCG-Bupiv 0.125% Epi 150 ML EPIDURAL PRN (11:30)
--- NOTE | 2017-12-02 11:32 | P.OBDELI ---
Weeks Gestation: 38 Medical Induction of Labor: Yes (for oligohydramnios) Artificial Rupture of Membrane: Yes Artificial ROM Date: 12/02/17 Artificial ROM Time: 11:00 Anesthesia: Epidural Episiotomy: none Vaginal Delivery: Normal Presentation: Occiput anterior, Vertex Nuchal Cord: x1 Delayed Cord Clamping (45 sec): Yes Placenta: Spontaneous delivery, Intact, 3 vessel cord Laceration: None Estimated blood loss (mL): 200 Infant: Female
[2017-12-02] MEDS ORDERED: Measles/Mumps/Rubella Vaccine Inj 0.5 ML Vial SQ ONE (16:00)
[2017-12-02] MEDS ORDERED: Diphtheria/Tetanus/Pertussis Vaccine Inj 0.5 ML Syringe IM ONE (16:00)
[2017-12-02] MEDS: Senna/Docusate Sodium 8.6/50 MG Tablet PO SCH (19:59)
--- NOTE | 2017-12-03 08:31 | P.PNOB ---
Subjective Post day: 1 Interval history: Patient is a 32-year-old delivered at 38 weeks and 2 days. Patient is day 1 after IVD. Patient's pain is well-controlled. Patient reports eating and drinking without any nausea or vomiting. Patient reports minimal bleeding. Patient has passed gas but no bowel movements. Patient is walking without lower extremity pain or shortness of breath. Patient reports desire for contraception with tubal ligation and formula-feeding. Objective Vital Signs/I&O: Vital Signs 12/02/17 09:28 12/02/17 09:31 12/02/17 10:25 Temperature Pulse Rate 81 94 H Respiratory Rate 18 10 L Blood Pressure 136/79 85/44 L 12/02/17 10:50 12/02/17 10:56 12/02/17 11:11 Temperature Pulse Rate 97 H 88 110 H Respiratory Rate 18 18 Blood Pressure 94/55 L 101/80 72/19 L 12/02/17 11:30 12/02/17 11:40 12/02/17 11:45 Temperature Pulse Rate 105 H 108 H Respiratory Rate 18 Blood Pressure 129/82 132/74 12/02/17 11:50 12/02/17 12:01 12/02/17 12:30 Temperature Pulse Rate 110 H 106 H Respiratory Rate 18 Blood Pressure 129/74 67/48 L 12/02/17 13:06 12/02/17 20:00 Temperature 98.0 F 98.2 F Pulse Rate 94 H 69 Respiratory Rate 20 18 Blood Pressure 110/62 127/83 Intake & Output 12/02/17 12/03/17 12/03/17 18:59 06:59 18:59 Intake Total 1000 / 1000 Balance 1000 / 1000 Intake: IV 1000 / 1000 LR 1000 mL Inj 1,000 ML @ 125 1000 / 1000 mls/hr IV.CONT .Q8H [facility] Rx#: [id number] Result Diagrams: 12/01/17 15:35 Objective Remarks: GENERAL: Well-nourished, well-developed patient. CARDIOVASCULAR: Regular rate and rhythm without murmurs, gallops, or rubs. RESPIRATORY: Breath sounds equal bilaterally. No accessory muscle use. ABDOMEN/GI: Abdomen soft, non-tender. Fundus: Firm, non-tender at umbilicus. GENITOURINARY: Light to moderate bleeding. EXTREMITIES: No cyanosis, 1+ pitting edema, non-tender, without signs of DVT. Medications and IVs: Active Medications Acetaminophen (Tylenol) 650 mg PO Q4H PRN PRN Reason: PAIN SCALE 1 TO 2 Al Hydroxide/Mg Hydroxide (Milk Of Magnesia Liq) 30 ml PO Q12H PRN PRN Reason: Mild Constipation Benzocaine (Americaine 20% Top [place]) 1 spray TOPICAL Q4H PRN PRN Reason: For Perineum Discomfort Last Admin: 12/02/17 14:33 Dose: 1 spray Bisacodyl (Dulcolax Supp) 10 mg RECTAL DAILY PRN PRN Reason: SEVERE CONSITIPATION Ephedrine Sulfate (Ephedrine/Ns Syringe) 10 mg IV.PUSH UNSCH PRN PRN Reason: SEE LABEL COMMENTS Stop: 12/03/17 11:08 Last Admin: 12/02/17 12:02 Dose: 10 mg Famotidine (Pepcid) 20 mg PO BID [place] Last Admin: 12/02/17 19:59 Dose: 20 mg Fentanyl/Bupivacaine/Sodium Chlor (Fentanyl 2 Mcg-Bupiv 0.125% Epi) 150 mls @ 12 mls/hr EPIDURAL PRN PRN PRN Reason: for Labor Pain Last Admin: 12/02/17 12:04 Dose: 12 mls/hr Oxytocin (Pitocin 30 Units/Ns 500 Ml Premix) 30 units in 500 mls @ 100 mls/hr IV.CONT UNSCH PRN PRN Reason: Heavy bleeding Ibuprofen (Motrin) 800 mg PO Q8H PRN PRN Reason: For Cramping Last Admin: 12/03/17 04:42 Dose: 800 mg Lactulose (Lactulose Liq) 30 ml PO DAILY PRN PRN Reason: SEVERE CONSITIPATION Miscellaneous Information (Misc Information) 1 each OTHER UNSCH PRN PRN Reason: SEE LABEL COMMENTS Stop: 12/03/17 11:08 Miscellaneous Information (Misc Information) 1 each OTHER UNSCH PRN PRN Reason: SEE LABEL COMMENTS Stop: 12/03/17 11:08 Naloxone HCl (Narcan Inj) 0.1 mg IV.PUSH Q2M PRN PRN Reason: for opiate reversal Ondansetron HCl (Zofran Odt) 4 mg PO Q6H PRN PRN Reason: NAUSEA OR VOMITING Oxycodone/Acetaminophen (Percocet 5/325 Mg) 1 tab PO Q4H PRN PRN Reason: PAIN SCALE 3 TO 5 Last Admin: 12/03/17 04:41 Dose: 1 tab Oxycodone/Acetaminophen (Percocet 5/325 Mg) 2 tab PO Q4H PRN PRN Reason: PAIN SCALE 6 TO 10 Vit/Calcium/Iron/Folic Ac (Stuartnatal Plus 3) 1 tab PO DAILY [place] Senna/Docusate Sodium (Evelyn-Colace) 1 tab PO BID [place] Last Admin: 12/02/17 19:59 Dose: 1 tab Sennosides (Senokot) 17.2 mg PO Q12H PRN PRN Reason: Moderate Constipation Sodium Chloride (Ns Flush) 2 ml IV.FLUSH BID [place] Sodium Chloride (Ns Flush) 2 ml IV.FLUSH UNSCH PRN PRN Reason: FLUSH AFTER USING IV ACCESS Witch Mary/Glycerin (Tucks Pads) 1 applicatio RECTAL QID PRN PRN Reason: HEMORRHOIDS Last Admin: 12/02/17 14:33 Dose: 1 applicatio Zolpidem Tartrate (Ambien) 5 mg PO HS PRN PRN Reason: SLEEP Assessment and Plan - Diagnosis (1) 38 weeks gestation of Code(s): Z3A.38 - 38 weeks gestation of Status: Acute Plan: Patient is a 32-year-old at 38 weeks and 1 day admitted for induction of labor for oligohydramnios. Patient had previous Cervidil x2, then rapidly progressed into active labor. - Plan Patient is a 32-year-old delivered at 38 weeks and 2 days. Patient is day 1 after IVD. Patient was counseled to do 6 weeks of pelvic rest. Patient was counseled to follow up in 6 weeks. Patient requested follow-up and contraception. --AF VSS --Continue routine care --Motrin and Percocet when necessary for pain --Encourage OOB --Pelvic rest for 6 weeks will need follow-up appointment at that time. --Contraception: planning on tubal ligation --Anticipate discharge tomorrow - Attending Attestation The exam, history, and the medical decision-making described in the above note were completed with the assistance of the resident physician. I reviewed and agree with the findings presented. I attest that I had a [id number] encounter with the patient on the same day, and personally performed and documented my assessment and findings in the medical record.
[2017-12-03] MEDS: Famotidine 20 MG Tablet PO SCH ×2 (08:55→20:58)
[2017-12-03] MEDS: Senna/Docusate Sodium 8.6/50 MG Tablet PO SCH ×2 (08:55→20:58)
[2017-12-03] MEDS: Prenatal Vit/Ca/Iron/Folic Acid Tablet PO SCH (08:55)
[2017-12-03] MEDS ORDERED: Influenza (Quadrivalent) Vaccine 0.5 ML Syringe IM ONE (20:00)
--- NOTE | 2017-12-04 08:39 | P.PNOB ---
Subjective Post day: 2 Interval history: Patient is a 32-year-old delivered at 38 weeks and 2 days. Patient is day 2 after IVD. Patient's pain is mostly well-controlled, but she is still complaining of some crampy low back pain. Patient reports eating and drinking without any nausea or vomiting. Patient reports minimal bleeding. Patient has passed gas and bowel movements. Patient is walking without lower extremity pain or shortness of breath. Patient reports desire for contraception with tubal ligation and formula-feeding. Objective Vital Signs/I&O: Vital Signs 12/03/17 20:00 Temperature 99.0 F Pulse Rate 70 Respiratory Rate 18 Blood Pressure 157/85 H Result Diagrams: 12/01/17 15:35 Objective Remarks: GENERAL: Well-nourished, well-developed patient. CARDIOVASCULAR: Regular rate and rhythm without murmurs, gallops, or rubs. RESPIRATORY: Breath sounds equal bilaterally. No accessory muscle use. ABDOMEN/GI: Abdomen soft, non-tender. Fundus: Firm, non-tender at umbilicus. GENITOURINARY: Light to moderate bleeding. EXTREMITIES: No cyanosis, 2+ pitting edema BL, non-tender, without signs of DVT. Medications and IVs: Active Medications Acetaminophen (Tylenol) 650 mg PO Q4H PRN PRN Reason: PAIN SCALE 1 TO 2 Al Hydroxide/Mg Hydroxide (Milk Of Magnjoelle Liq) 30 ml PO Q12H PRN PRN Reason: Mild Constipation Benzocaine (Americaine 20% Top [place]) 1 spray TOPICAL Q4H PRN PRN Reason: For Perineum Discomfort Last Admin: 12/02/17 14:33 Dose: 1 spray Bisacodyl (Dulcolax Supp) 10 mg RECTAL DAILY PRN PRN Reason: SEVERE CONSITIPATION Famotidine (Pepcid) 20 mg PO BID [place] Last Admin: 12/03/17 20:58 Dose: 20 mg Fentanyl/Bupivacaine/Sodium Chlor (Fentanyl 2 Mcg-Bupiv 0.125% Epi) 150 mls @ 12 mls/hr EPIDURAL PRN PRN PRN Reason: for Labor Pain Last Admin: 12/02/17 12:04 Dose: 12 mls/hr Oxytocin (Pitocin 30 Units/Ns 500 Ml Premix) 30 units in 500 mls @ 100 mls/hr IV.CONT UNSCH PRN PRN Reason: Heavy bleeding Ibuprofen (Motrin) 800 mg PO Q8H PRN PRN Reason: For Cramping Last Admin: 12/04/17 08:32 Dose: 800 mg Lactulose (Lactulose Liq) 30 ml PO DAILY PRN PRN Reason: SEVERE CONSITIPATION Naloxone HCl (Narcan Inj) 0.1 mg IV.PUSH Q2M PRN PRN Reason: for opiate reversal Ondansetron HCl (Zofran Odt) 4 mg PO Q6H PRN PRN Reason: NAUSEA OR VOMITING Oxycodone/Acetaminophen (Percocet 5/325 Mg) 1 tab PO Q4H PRN PRN Reason: PAIN SCALE 3 TO 5 Last Admin: 12/04/17 00:19 Dose: 1 tab Oxycodone/Acetaminophen (Percocet 5/325 Mg) 2 tab PO Q4H PRN PRN Reason: PAIN SCALE 6 TO 10 Last Admin: 12/04/17 08:32 Dose: 2 tab Vit/Calcium/Iron/Folic Ac (Stuartnatal Plus 3) 1 tab PO DAILY [facility] Last Admin: 12/03/17 08:55 Dose: 1 tab Senna/Docusate Sodium (Evelyn-Colace) 1 tab PO BID [facility] Last Admin: 12/03/17 20:58 Dose: 1 tab Sennosides (Senokot) 17.2 mg PO Q12H PRN PRN Reason: Moderate Constipation Sodium Chloride (Ns Flush) 2 ml IV.FLUSH BID [facility] Sodium Chloride (Ns Flush) 2 ml IV.FLUSH UNSCH PRN PRN Reason: FLUSH AFTER USING IV ACCESS Witch Mary/Glycerin (Tucks Pads) 1 applicatio RECTAL QID PRN PRN Reason: HEMORRHOIDS Last Admin: 12/02/17 14:33 Dose: 1 applicatio Zolpidem Tartrate (Ambien) 5 mg PO HS PRN PRN Reason: SLEEP Assessment and Plan - Diagnosis (1) 38 weeks gestation of Code(s): Z3A.38 - 38 weeks gestation of Status: Acute Plan: Patient is a 32-year-old at 38 weeks and 1 day admitted for induction of labor for oligohydramnios. Patient had previous Cervidil x2, then rapidly progressed into active labor. - Plan Patient is a 32-year-old delivered at 38 weeks and 2 days. Patient is day 2 after IVD. Patient was counseled to do 6 weeks of pelvic rest. Patient was counseled to follow up in 6 weeks. Patient requested follow-up and contraception. --AF VSS --Continue routine care --Motrin and Percocet when necessary for pain --Encourage OOB --Pelvic rest for 6 weeks will need follow-up appointment at that time. --Contraception: planning on tubal ligation --Anticipate discharge today - Attending Attestation I discussed with the resident and then evaluated the patient independently. Patient is PPD#2. She is doing well by my assessment. She has some generalized low back pain. Lochia is less than menstrual bleeding. She is planning on tubal ligation for control and getting that arranged today. She is formula feeding, would benefit from counseling on the benefits of . She has follow up planned with Dr. Pacheco. No concerns for post blues or depression at this time. Pain is well controlled with medication. She had bowel movement and is urinating. She is ambulating. She has no other concerns or questions. Baby is getting an ECHO today to evaluate a heart murmur. Plan to discharge mom today.
[2017-12-04] MEDS: Famotidine 20 MG Tablet PO SCH (09:47)
[2017-12-04] MEDS: Senna/Docusate Sodium 8.6/50 MG Tablet PO SCH (09:47)
[2017-12-04] MEDS: Prenatal Vit/Ca/Iron/Folic Acid Tablet PO SCH (09:47)
== END 2017-12-04 14:34 | disposition home or self-care (01) ==
LOC: H2E 14:13 → H1EA 12-02 12:59
PROVIDERS: ADMIT Obstetrics & Gynecology; ATTEND Obstetrics & Gynecology